=== PATIENT | male | born 1965 | race Caucasian/White ===

== ENCOUNTER 2017-01-24 09:04 | Emergency (ER) | payer OTHER ==
[2017-01-24 09:12] VITALS: BP 173/77; PULSE 111; TEMP 98.5; BMI 42.0
[2017-01-24] MEDS ORDERED: IBUPROFEN 400 MG TABLET (FP) PO ONE ×2 (09:40→09:42)
--- NOTE | 2017-01-24 09:43 | PDOC ---
History of Present Illness - General Chief Complaint: Back Pain Stated Complaint: BACK PAIN Time Seen by Provider: 01/24/17 09:30 History Source: Patient Exam Limitations: No Limitations - History of Present Illness Initial Comments: 01/24/17 09:43 My Chief Complaint: fall, pain in tailbone History of Present Illness: patient is a 51 year old male [email or web address] Worker with history of hypertension here today due to pt. lossing his footing while getting into a city truck causing him to fall on to his buttuck. Pt. c/o severe pain in his coccyx, worse with sitting. Pt.currently is a 06/28. Pt. denies hitting his head. He denies any radiation of pain down legs, any incontinency or saddle anesthesia. Occurred: reports: just prior to arrival Severity: reports: severe Pain Location: reports: other (coccyx ) Method of Injury: Yes: fall (unto buttock ) Modifying Factors: improves with: None Loss of Consciousness: no loss of consciousness Associated Symptoms (Fall): denies symptoms Past History - Past Medical History Allergies/Adverse Reactions: Allergies Allergy/AdvReac Type Severity Reaction Status Date / Time No Known Allergies Allergy Verified 01/24/17 09:10 Home Medications: Ambulatory Orders Unobtainable [Unobtainable] 01/24/17 HTN: Yes - Psycho/Social/Smoking Cessation Hx Anxiety: No Suicidal Ideation: No Smoking History: Never smoked Have you smoked in the past 12 months: No Information on smoking cessation initiated: No Hx Alcohol Use: No Drug/Substance Use Hx: No Substance Use Type: Alcohol Review of Systems - Review of Systems Able to Perform ROS?: Yes Constitutional: No: Symptoms Reported HEENTM: No: Symptoms Reported Respiratory: No: Symptoms reported Cardiac (ROS): No: Symptoms Reported ABD/GI: No: Symptoms Reported Musculoskeletal: Yes: Other (pain in coccyx) Integumentary: No: Symptoms Reported Neurological: No: Symptoms reported *Physical Exam - Vital Signs Last Vital Signs Temp Pulse Resp BP Pulse Ox 98.5 F 111 H 20 173/77 100 01/24/17 09:10 01/24/17 09:10 01/24/17 09:10 01/24/17 09:10 01/24/17 09:10 - Physical Exam General Appearance: Yes: Appropriately Dressed Respiratory/Chest: positive: Lungs Clear, Normal Breath Sounds Cardiovascular: positive: Regular Rhythm, Regular Rate, S1, S2 Musculoskeletal: positive: Normal Inspection, Other (coccyx). negative: CVA Tenderness, CVA Tenderness (R), CVA Tenderness (L), Vertebral Tenderness Extremity: positive: Normal Capillary Refill, Normal Inspection, Normal Range of Motion Integumentary: positive: Normal Color Neurologic: positive: Alert, Normal Response, Motor Strength 5/5 (legs b/l ), Respond to painful stimul (b/l legs ). negative: Sensory Deficit (legs ) Medical Decision Making - Medical Decision Making 01/24/17 09:46 patient is a 51 year old male [email or web address] Work[employer] with history of hypertension here today due to pt. lossing his footing while getting into a city truck causing him to fall on to his buttuck. Pt. c/o severe pain in his coccyx, worse with sitting. Pt.currently is a 10/10. Pt. denies hitting his head. He denies any radiation of pain down legs, any incontinency or saddle anesthesia. Fall r/o fracture of coccyx PLAN: ibuprofen 800 mg po now xray coccyx xray spine lumbar/sacral 01/24/17 10:11 follow up with orthopedist follow up with occupational health prior to resuming work *DC/Admit/Observation/Transfer Diagnosis at time of Disposition: Coccyx contusion Qualifiers: Encounter type: initial encounter Qualified Code(s): S30.0XXA - Contusion of lower back and pelvis, initial encounter Fall Qualifiers: Encounter type: initial encounter Qualified Code(s): W19.XXXA - Unspecified fall, initial encounter - Discharge Dispostion Disposition: HOME Condition at time of disposition: Stable - Referrals Referrals: STAFF,NOT ON [Primary Care Provider] - Rajan Lane MD [Staff Physician] - - Patient Instructions Additional Instructions: Avoid any strenuous activities Sit on doughnut pillow Take ibuprofen as needed as directed by director patient financial services for pain Follow-up with orthopedist within the next few days You must be cleared by occupational health prior to returning back to work Return to emergency room if symptoms worsen any numbness of groin or any incontinency Patient voiced understanding of discharge instructions and all questions were answered - Post Discharge Activity Work/School Note: Back to Work
== END 2017-01-24 10:44 | disposition home or self-care (01) ==
LOC: JERFT 09:04
DX: S30.0XXA Contusion of lower back and pelvis, initial encounter (principal); V68.4XXA Person boarding or alighting a heavy transport vehicle injured in noncollision transport accident, initial encounter; Y92.488 Other paved roadways as the place of occurrence of the external cause; Y93.89 Activity, other specified; Y99.0 Civilian activity done for income or pay; I10 Essential (primary) hypertension
CPT/HCPCS: 72100-TC; 72220-TC; 99281-25

== ENCOUNTER 2018-04-07 08:57 | Emergency (ER) | payer OTHER ==
[2018-04-07 09:09] VITALS: BP 149/74; PULSE 98; TEMP 98.5; BMI 44.0
--- NOTE | 2018-04-07 09:36 | PDOC ---
History of Present Illness - General Chief Complaint: Foreign Body (FB) Stated Complaint: INJURY TO LEFT EYE Time Seen by Provider: 04/07/18 09:16 History Source: Patient Exam Limitations: Clinical Condition - History of Present Illness Initial Comments: 04/07/18 09:30 Patient with no significant past medical history presenting with redness of the left eye after dust went into the left eye 2 days ago when he was cleaning a shelf. Report pain and redness in left eye. Patient wear corrective lenses but no contact lenses. Poor no other symptoms Timing/Duration: 24 hours Severity: mild Past History - Past Medical History Allergies/Adverse Reactions: Allergies Allergy/AdvReac Type Severity Reaction Status Date / Time No Known Allergies Allergy Verified 04/07/18 09:05 Home Medications: Ambulatory Orders Tobramycin 0.3% Ophth Soln [Tobrex *Ophthalmic Solution*] 2 drop OP Q6HPO 5 Days #1 bottle 04/07/18 HTN: Yes - Suicide/Smoking/Psychosocial Hx Smoking History: Never smoked Have you smoked in the past 12 months: No Hx Alcohol Use: Yes (DAILY) Drug/Substance Use Hx: No Substance Use Type: Alcohol Review of Systems - Review of Systems Constitutional: No: Chills, Diaphoresis, Fever, Loss of Appetite, Malaise, Night Sweats, Weakness, Weight Stable, Unintentional Wgt. Loss, Unexplained wgt Loss, Other HEENTM: Yes: Eye Pain (left eye), Blurred Vision (left eye). No: Tearing, Recent change in vision, Double Vision, Cataracts, Ear Pain, Ocular Prothesis, Ear Discharge, Nose Pain, Nose Congestion, Tinnitus, Nose Bleeding, Hearing Loss , Throat Pain, Throat Swelling, Mouth Pain, Dental Problems, Difficulty Swallowing, Mouth Swelling, Other Respiratory: No: Cough, Orthopnea, Shortness of Breath, SOB with Exertion, SOB at Rest, Stridor, Wheezing, Productive cough, Hemoptysis, Other Cardiac (ROS): No: Chest Pain, Edema, Irregular Heart Rate, Lightheadedness, Palpitations, Syncope, Chest Tightness, Other ABD/GI: No: Abdominal Distended, Abd. Pain w/ defecation, Blood Streaked Bowels , Constipated, Diarrhea, Difficulty Swallowing, Nausea, Poor Appetite, Poor Fluid Intake, Rectal Bleeding, Vomiting, Indigestion, Abdominal cramping, Tarry Stools, Other Musculoskeletal: No: Symptoms Reported, See HPI, Back Pain, Gout, Joint Pain, Joint Swelling, Muscle Pain, Muscle Weakness, Neck Pain, Joint Stiffness, Other All Other Systems: Reviewed and Negative *Physical Exam - Vital Signs Last Vital Signs Temp Pulse Resp BP Pulse Ox 98.5 F 98 H 18 149/74 96 04/07/18 09:00 04/07/18 09:00 04/07/18 09:00 04/07/18 09:00 04/07/18 09:00 - Physical Exam Comments: 04/07/18 09:33 GENERAL: Well developed, well nourished. Awake and alert. No acute distress. HEENT: Moderate erythema to the left conjunctivae. No evidence of foreign object with exam with flourescein stain Normocephalic, atraumatic. PERRLA, EOMI. . Moist mucous membranes. Oropharynx is clear. NECK: Supple. Full ROM. No JVD. Carotid pulses 2+ and symmetric, without bruits. No thyromegaly. No lymphadenopathy. CARDIOVASCULAR: Regular rate and rhythm. No murmurs, rubs, or gallops. Distal pulses are 2+ and symmetric. PULMONARY: No evidence of respiratory distress. Lungs clear to auscultation bilaterally. No wheezing, rales or rhonchi. ABDOMINAL: Soft. Non-tender. Non-distended. No rebound or guarding. No organomegaly. Normoactive bowel sounds. MUSCULOSKELETAL Normal range of motion at all joints. No bony deformities or tenderness. No CVA tenderness. EXTREMITIES: No cyanosis. No clubbing. No edema. No calf tenderness. SKIN: Warm and dry. Normal capillary refill. No rashes. No jaundice. NEUROLOGICAL: Alert, awake, appropriate. Cranial nerves 2-12 intact. No deficits to light touch and temperature in face, upper extremities and lower extremities. No motor deficits in the in face, upper extremities and lower extremities. Normoreflexic in the upper and lower extremities. Normal speech. Toes are down- going bilaterally. Gait is normal without ataxia. PSYCHIATRIC: Cooperative. Good eye contact. Appropriate mood and affect. General Appearance: Yes: Nourished, Appropriately Dressed. No: Apparent Distress Medical Decision Making - Medical Decision Making 04/07/18 09:34 Patient resents him when pain and redness to left conjunctivae s/p dust going to the eye while cleaning and no evidence of corneal abrasion or damage on exam. She'll be treated for conjunctivitis with ophthalmology follow-up. *DC/Admit/Observation/Transfer Diagnosis at time of Disposition: Keratitis Conjunctivitis Qualifiers: Conjunctivitis type: acute Acute conjunctivitis type: unspecified Laterality: left Qualified Code(s): H10.32 - Unspecified acute conjunctivitis, left eye - Discharge Dispostion Disposition: HOME Condition at time of disposition: Good Decision to Admit order: No - Prescriptions Prescriptions: Tobramycin 0.3% Ophth Soln [Tobrex *Ophthalmic Solution*] 2 drop OP Q6HPO 5 Days #1 bottle - Referrals Referrals: Mark Honeycutt [Non Staff, Medical] - - Patient Instructions Printed Discharge Instructions: DI for Keratitis - Post Discharge Activity
== END 2018-04-07 10:10 | disposition home or self-care (01) ==
LOC: JERFT 08:57
DX: H16.202 Unspecified keratoconjunctivitis, left eye (principal)
CPT/HCPCS: 99281-25